=== PATIENT | female | born 1945 | race Caucasian/White ===

== ENCOUNTER 2018-05-09 18:05 | Inpatient (IN) | payer MEDICARE, OTHER ==
[2018-05-09 18:55] LABS: ADD MAN DIFF? NO
[2018-05-09] MEDS: hydrALAzine 20 MG INJ IV (18:58)
[2018-05-09 18:59] LABS: BASOPHIL # 0.1 10^3/ul (0.0-0.1); BASOPHILS % 1.1 % (0.0-2.0); EOSINOPHILS # 0.1 10^3/ul (0.0-0.5); EOSINOPHILS % 1.9 % (0.0-7.0); HEMATOCRIT 34.8 % (37.0-47.0); HEMOGLOBIN 11.1 g/dl (12.0-16.0); LYMPHOCYTES # 1.4 10^3/ul (0.8-2.9); LYMPHOCYTES % 21.1 % (15.0-51.0); MEAN CORPUSCULAR HEMOGLOBIN 28.7 pg (29.0-33.0); MEAN CORPUSCULAR HGB CONC 31.9 g/dl (32.0-37.0); MEAN CORPUSCULAR VOLUME 89.9 fl (82.0-101.0); MEAN PLATELET VOLUME 10.9 fl (7.4-10.4); MONOCYTE # 0.5 10^3/ul (0.3-0.9); MONOCYTES % 8.3 % (0.0-11.0); NEUTROPHIL # 4.3 10^3/ul (1.6-7.5); PLATELET COUNT 174 10^3/UL (140-415); RED BLOOD COUNT 3.87 10^6/ul (4.20-5.40); RED CELL DISTRIBUTION WIDTH 13.3 % (11.5-14.5)
[2018-05-09 18:59] LABS: WHITE BLOOD COUNT 6.5 10^3/ul (4.8-10.8)
[2018-05-09 19:16] LABS: INR 0.88; PARTIAL THROMBOPLASTIN TIME 21.8 Sec (23.0-35.0); PT RATIO 0.9
[2018-05-09 19:17] LABS: ALANINE AMINOTRANSFERASE 16 IU/L (13-69); ALBUMIN 4.5 g/dl (3.3-4.9); ALBUMIN/GLOBULIN RATIO 1.45; ALKALINE PHOSPHATASE 47 IU/L (42-121); ANION GAP 12 (5-13); ASPARTATE AMINO TRANSFERASE 36 IU/L (15-46); BILIRUBIN,INDIRECT 0.2 mg/dl (0-1.1); BILIRUBIN,TOTAL 0.2 mg/dl (0.2-1.3); BLOOD UREA NITROGEN 52 mg/dl (7-20); CARBON DIOXIDE 36 mmol/L (21-31); CHLORIDE 91 mmol/L (97-110); GLUCOSE 99 mg/dl (70-220); LIPASE 326 U/L (23-300); POTASSIUM 3.3 mmol/L (3.5-5.1); SODIUM 139 mmol/L (135-144); TOTAL PROTEIN 7.6 g/dl (6.1-8.1)
[2018-05-09 19:28] LABS: TROPONIN-I 0.017 ng/ml (0.000-0.120)
[2018-05-09 19:34] LABS: CALCIUM 17.9 mg/dl (8.4-10.2)
[2018-05-09 19:36] LABS: ADD UMIC YES; UR ASCORBIC ACID NEGATIVE (NEGATIVE); UR BACTERIA FEW /HPF (NONE SEEN); UR BILIRUBIN (Dip) NEGATIVE (NEGATIVE); UR BLOOD (Dip) NEGATIVE (NEGATIVE); UR CLARITY CLEAR (CLEAR); UR COLOR STRAW (YELLOW); UR GLUCOSE (Dip) NEGATIVE (NEGATIVE); UR KETONES (Dip) NEGATIVE (NEGATIVE); UR LEUKOCYTE ESTERASE (Dip) NEGATIVE Leu/ul (NEGATIVE); UR NITRITE (Dip) NEGATIVE (NEGATIVE); UR RBC 1 /HPF (0-5); UR SPECIFIC GRAVITY (Dip) 1.008 (1.003-1.030); UR SQUAMOUS EPITHELIAL CELL FEW /HPF (FEW); UR TOTAL PROTEIN (Dip) 2+ mg/dl (NEGATIVE); UR UROBILINOGEN (Dip) NEGATIVE (NEGATIVE); UR WBC 1 /HPF (0-5)
[2018-05-09] MEDS: SOD CHLORIDE 0.9% 1,000 ML IV (20:08)
[2018-05-09] MEDS: FUROSEMIDE 20 MG INJ IV (20:08)
[2018-05-09] MEDS: ENALAPRILAT 1.25 MG INJ IV (21:05)
[2018-05-09 22:33] LABS: CREATININE,URINE RANDOM 55.66 mg/dl (20-320)
[2018-05-09 22:33] LABS: SODIUM,URINE RANDOM 76 mmol/L (30-90)
[2018-05-10] MEDS ORDERED: DICLOFENAC SODIUM 1% GEL 100 GM TUBE TP (01:00)
[2018-05-10] MEDS: SOD CHLORIDE 0.9% 1,000 ML IV ×2 (01:12→09:50)
[2018-05-10] MEDS: POTASSIUM CHLORIDE (SR) 20 MEQ TAB PO ×2 (05:37→10:54)
[2018-05-10 05:54] LABS: ADD MAN DIFF? NO
[2018-05-10 06:01] LABS: BASOPHIL # 0.1 10^3/ul (0.0-0.1); BASOPHILS % 0.9 % (0.0-2.0); EOSINOPHILS # 0.1 10^3/ul (0.0-0.5); EOSINOPHILS % 1.7 % (0.0-7.0); HEMATOCRIT 29.4 % (37.0-47.0); HEMOGLOBIN 9.2 g/dl (12.0-16.0); LYMPHOCYTES # 1.9 10^3/ul (0.8-2.9); LYMPHOCYTES % 28.6 % (15.0-51.0); MEAN CORPUSCULAR HEMOGLOBIN 28.2 pg (29.0-33.0); MEAN CORPUSCULAR HGB CONC 31.3 g/dl (32.0-37.0); MEAN CORPUSCULAR VOLUME 90.2 fl (82.0-101.0); MEAN PLATELET VOLUME 11.4 fl (7.4-10.4); MONOCYTE # 0.7 10^3/ul (0.3-0.9); MONOCYTES % 10.3 % (0.0-11.0); NEUTROPHIL # 3.8 10^3/ul (1.6-7.5); PLATELET COUNT 140 10^3/UL (140-415); RED BLOOD COUNT 3.26 10^6/ul (4.20-5.40); RED CELL DISTRIBUTION WIDTH 13.3 % (11.5-14.5)
[2018-05-10 06:01] LABS: WHITE BLOOD COUNT 6.6 10^3/ul (4.8-10.8)
[2018-05-10 06:39] LABS: ANION GAP 9 (5-13); BLOOD UREA NITROGEN 50 mg/dl (7-20); CARBON DIOXIDE 32 mmol/L (21-31); CHLORIDE 96 mmol/L (97-110); CREATININE 5.61 mg/dl (0.44-1.00); GLUCOSE 104 mg/dl (70-220); MAGNESIUM 1.7 mg/dl (1.7-2.5); PHOSPHORUS 4.5 mg/dl (2.5-4.9); POTASSIUM 3.1 mmol/L (3.5-5.1); SODIUM 137 mmol/L (135-144)
[2018-05-10 06:49] LABS: CALCIUM 15.9 mg/dl (8.4-10.2)
[2018-05-10] MEDS: ACCU-CHEK XX ×4 (07:00→20:25)
[2018-05-10] MEDS ORDERED: CALCITONIN SALMON 400 UNITS INJ SC (09:00)
[2018-05-10] MEDS: LINAGLIPTIN 5 MG TABLET PO (10:53)
[2018-05-10] MEDS: FUROSEMIDE 40 MG INJ IV (10:53)
[2018-05-10] MEDS: CALCITONIN SALMON 400 UNITS INJ SC ×2 (10:54→22:20)
[2018-05-10 13:44] LABS: CALCIUM 15.6 mg/dl (8.4-10.2)
[2018-05-10 17:03] LABS: ANION GAP 11 (5-13); BLOOD UREA NITROGEN 47 mg/dl (7-20); CARBON DIOXIDE 31 mmol/L (21-31); CHLORIDE 96 mmol/L (97-110); CREATININE 5.48 mg/dl (0.44-1.00); GLUCOSE 138 mg/dl (70-220); POTASSIUM 3.5 mmol/L (3.5-5.1); SODIUM 138 mmol/L (135-144)
[2018-05-10 17:13] LABS: CALCIUM 15.1 mg/dl (8.4-10.2)
[2018-05-11] MEDS: SOD CHLORIDE 0.9% 1,000 ML IV ×3 (01:20→22:11)
[2018-05-11 06:15] LABS: ADD MAN DIFF? NO
[2018-05-11 06:17] LABS: WHITE BLOOD COUNT 7.4 10^3/ul (4.8-10.8)
[2018-05-11 06:17] LABS: BASOPHIL # 0.1 10^3/ul (0.0-0.1); BASOPHILS % 0.7 % (0.0-2.0); EOSINOPHILS # 0.1 10^3/ul (0.0-0.5); EOSINOPHILS % 1.2 % (0.0-7.0); HEMATOCRIT 29.6 % (37.0-47.0); HEMOGLOBIN 9.4 g/dl (12.0-16.0); LYMPHOCYTES # 1.7 10^3/ul (0.8-2.9); LYMPHOCYTES % 23.3 % (15.0-51.0); MEAN CORPUSCULAR HEMOGLOBIN 28.6 pg (29.0-33.0); MEAN CORPUSCULAR HGB CONC 31.8 g/dl (32.0-37.0); MEAN PLATELET VOLUME 11.5 fl (7.4-10.4); MONOCYTE # 0.7 10^3/ul (0.3-0.9); NEUTROPHIL # 4.8 10^3/ul (1.6-7.5); NEUTROPHILS % 64.1 % (39.0-77.0); PLATELET COUNT 150 10^3/UL (140-415); RED BLOOD COUNT 3.29 10^6/ul (4.20-5.40); RED CELL DISTRIBUTION WIDTH 13.4 % (11.5-14.5)
[2018-05-11] MEDS: hydrALAzine 20 MG INJ IV (06:38)
[2018-05-11] MEDS: ACCU-CHEK XX ×4 (07:00→21:00)
[2018-05-11 07:20] LABS: ANION GAP 11 (5-13); BLOOD UREA NITROGEN 48 mg/dl (7-20); CARBON DIOXIDE 29 mmol/L (21-31); CHLORIDE 99 mmol/L (97-110); CREATININE 5.22 mg/dl (0.44-1.00); GLUCOSE 121 mg/dl (70-220); MAGNESIUM 1.5 mg/dl (1.7-2.5); PHOSPHORUS 3.3 mg/dl (2.5-4.9); POTASSIUM 3.5 mmol/L (3.5-5.1); SODIUM 139 mmol/L (135-144)
[2018-05-11 07:53] LABS: CALCIUM 14.5 mg/dl (8.4-10.2)
[2018-05-11] MEDS: CALCITONIN SALMON 400 UNITS INJ SC (08:03)
[2018-05-11] MEDS: LINAGLIPTIN 5 MG TABLET PO (08:05)
[2018-05-11] MEDS: ONDANSETRON 4 MG INJ IV (11:45)
[2018-05-11] MEDS: MAGNESIUM SULFATE 2 GM/50 ML 50 ML IVPB (12:35)
[2018-05-11 13:03] LABS: CALCIUM 13.6 mg/dl (8.4-10.2)
[2018-05-11] MEDS: FUROSEMIDE 40 MG INJ IV (14:40)
[2018-05-11] MEDS: ALBUTEROL/IPRATROPIUM (NEB) 3 ML AMP HHN ×2 (16:12→22:35)
[2018-05-12] MEDS: ALBUTEROL/IPRATROPIUM (NEB) 3 ML AMP HHN ×4 (02:24→19:31)
[2018-05-12] MEDS: ACCU-CHEK XX ×5 (02:35→21:00)
[2018-05-12 05:37] LABS: ADD MAN DIFF? NO
[2018-05-12 05:42] LABS: BASOPHIL # 0.1 10^3/ul (0.0-0.1); BASOPHILS % 0.9 % (0.0-2.0); EOSINOPHILS # 0.1 10^3/ul (0.0-0.5); HEMOGLOBIN 9.1 g/dl (12.0-16.0); LYMPHOCYTES # 1.8 10^3/ul (0.8-2.9); LYMPHOCYTES % 22.3 % (15.0-51.0); MEAN CORPUSCULAR HEMOGLOBIN 28.6 pg (29.0-33.0); MEAN CORPUSCULAR HGB CONC 31.4 g/dl (32.0-37.0); MEAN CORPUSCULAR VOLUME 91.2 fl (82.0-101.0); MEAN PLATELET VOLUME 11.3 fl (7.4-10.4); NEUTROPHIL # 5.1 10^3/ul (1.6-7.5); NEUTROPHILS % 63.2 % (39.0-77.0); NUCLEATED RED BLOOD CELLS% 0.4 /100WBC (0.0-0.0); PLATELET COUNT 159 10^3/UL (140-415); RED BLOOD COUNT 3.18 10^6/ul (4.20-5.40); RED CELL DISTRIBUTION WIDTH 13.6 % (11.5-14.5)
[2018-05-12] MEDS ORDERED: PANTOPRAZOLE (EC) 40 MG TAB PO (05:47)
[2018-05-12] MEDS: PANTOPRAZOLE (EC) 40 MG TAB PO (05:49)
[2018-05-12 07:21] LABS: ANION GAP 10 (5-13); BLOOD UREA NITROGEN 48 mg/dl (7-20); CARBON DIOXIDE 32 mmol/L (21-31); CHLORIDE 96 mmol/L (97-110); CREATININE 5.36 mg/dl (0.44-1.00); GLUCOSE 128 mg/dl (70-220); MAGNESIUM 2.2 mg/dl (1.7-2.5); POTASSIUM 3.3 mmol/L (3.5-5.1); SODIUM 138 mmol/L (135-144)
[2018-05-12 07:37] LABS: CALCIUM 13.3 mg/dl (8.4-10.2)
[2018-05-12] MEDS: POTASSIUM CHLORIDE (SR) 20 MEQ TAB PO (08:57)
[2018-05-12] MEDS: LINAGLIPTIN 5 MG TABLET PO ×2 (08:58→12:44)
[2018-05-12] MEDS: SOD CHLORIDE 0.9% 1,000 ML IV (10:09)
[2018-05-12] MEDS ORDERED: LIDOCAINE 1% (MDV) 20 ML INJ (10:55)
[2018-05-12] MEDS ORDERED: MIDAZOLAM 1 MG/ML 2 ML INJ (10:55)
[2018-05-12] MEDS ORDERED: HEPARIN 1000 UNITS/ML 10 ML INJ ×2 (10:55→11:20)
[2018-05-12] MEDS ORDERED: IODIXANOL LOCM 100 ML BTL (10:55)
[2018-05-12] MEDS ORDERED: FENTAnyl 50 MCG/ML VIAL (10:56)
[2018-05-12] MEDS ORDERED: HEPARIN 1000 UNITS/NS (A-LINE) 1,000 ML (11:20)
[2018-05-12 12:30] LABS: HEPATITIS B SURFACE ANTIGEN NEGATIVE (NEGATIVE)
[2018-05-12] MEDS ORDERED: HYDROCODONE/APAP (5/325) TAB PO (14:00)
[2018-05-12] MEDS: morphine 2 MG INJ IV (14:20)
[2018-05-12] MEDS: ACETAMINOPHEN 500 MG TAB PO (14:20)
[2018-05-12 17:11] LABS: CREATININE, RANDOM URINE 59 mg/dL (20-275); MICROALBUMIN 48.2 mg/dL; MICROALBUMIN/CREATININE RATIO 817 (<30)
[2018-05-12] MEDS: [UNRECOGNIZED DRUG - REMARK] XX (17:30)
[2018-05-12] MEDS: HEPARIN 1000 UNITS/ML 10 ML INJ CATHETER (21:28)
[2018-05-12] MEDS: ACETAMINOPHEN/CODEINE #3 TAB PO (22:32)
[2018-05-12] MEDS: SENNA TAB PO (22:32)
[2018-05-13] MEDS: ALBUTEROL/IPRATROPIUM (NEB) 3 ML AMP HHN ×4 (01:27→19:47)
[2018-05-13 05:23] LABS: ADD MAN DIFF? NO
[2018-05-13 05:25] LABS: BASOPHIL # 0.1 10^3/ul (0.0-0.1); BASOPHILS % 0.8 % (0.0-2.0); EOSINOPHILS # 0.1 10^3/ul (0.0-0.5); HEMOGLOBIN 8.8 g/dl (12.0-16.0); LYMPHOCYTES # 1.9 10^3/ul (0.8-2.9); LYMPHOCYTES % 31.5 % (15.0-51.0); MEAN CORPUSCULAR HGB CONC 31.4 g/dl (32.0-37.0); MEAN CORPUSCULAR VOLUME 92.4 fl (82.0-101.0); MEAN PLATELET VOLUME 11.3 fl (7.4-10.4); MONOCYTE # 0.8 10^3/ul (0.3-0.9); MONOCYTES % 12.3 % (0.0-11.0); NEUTROPHIL # 3.2 10^3/ul (1.6-7.5); NEUTROPHILS % 52.9 % (39.0-77.0); NUCLEATED RED BLOOD CELLS% 0.3 /100WBC (0.0-0.0); PLATELET COUNT 131 10^3/UL (140-415); RED BLOOD COUNT 3.03 10^6/ul (4.20-5.40); RED CELL DISTRIBUTION WIDTH 13.8 % (11.5-14.5)
[2018-05-13 05:25] LABS: WHITE BLOOD COUNT 6.1 10^3/ul (4.8-10.8)
[2018-05-13] MEDS: ACETAMINOPHEN/CODEINE #3 TAB PO (05:28)
[2018-05-13 06:00] LABS: ANION GAP 9 (5-13); BLOOD UREA NITROGEN 27 mg/dl (7-20); CALCIUM 10.4 mg/dl (8.4-10.2); CARBON DIOXIDE 29 mmol/L (21-31); CHLORIDE 101 mmol/L (97-110); CREATININE 3.73 mg/dl (0.44-1.00); GLUCOSE 111 mg/dl (70-220); MAGNESIUM 1.9 mg/dl (1.7-2.5); PHOSPHORUS 2.1 mg/dl (2.5-4.9); POTASSIUM 3.4 mmol/L (3.5-5.1); SODIUM 139 mmol/L (135-144)
[2018-05-13] MEDS: SOD CHLORIDE 0.9% 1,000 ML IV (06:09)
[2018-05-13] MEDS: PANTOPRAZOLE (EC) 40 MG TAB PO (06:30)
[2018-05-13] MEDS: ACCU-CHEK XX ×4 (07:00→21:00)
[2018-05-13] MEDS: LINAGLIPTIN 5 MG TABLET PO (08:57)
[2018-05-13] MEDS: NEUTRA-PHOS 250 MG PACKET PO (08:57)
[2018-05-13] MEDS: POTASSIUM CHLORIDE (SR) 20 MEQ TAB PO (08:57)
[2018-05-13] MEDS: KETOROLAC 15 MG INJ IV (08:59)
[2018-05-13] MEDS: ACETAMINOPHEN 500 MG TAB PO (13:56)
[2018-05-13] MEDS: SENNA TAB PO (21:53)
[2018-05-13] MEDS: EPOETIN 10000 UNITS/1 ML INJ (ESRD) SC (21:56)
[2018-05-14 00:07] LABS: PROTEIN, TOTAL 5.5 g/dL (6.1-8.1)
[2018-05-14] MEDS: ACETAMINOPHEN/CODEINE #3 TAB PO (00:19)
[2018-05-14] MEDS: ALBUTEROL/IPRATROPIUM (NEB) 3 ML AMP HHN ×4 (01:15→20:43)
[2018-05-14] MEDS: PANTOPRAZOLE (EC) 40 MG TAB PO (06:18)
[2018-05-14] MEDS: ACETAMINOPHEN 500 MG TAB PO ×2 (06:28→23:20)
[2018-05-14] MEDS: ACCU-CHEK XX ×4 (08:00→22:33)
[2018-05-14] MEDS: LINAGLIPTIN 5 MG TABLET PO (09:20)
[2018-05-14] MEDS ORDERED: KETOROLAC 15 MG INJ IV (10:00)
[2018-05-14] MEDS: SENNA TAB PO ×2 (11:57→21:00)
[2018-05-14 15:46] LABS: CREATININE, RANDOM URINE 25 mg/dL (20-275); PROTEIN/CREATININE RATIO 2160 mg/g creat (21-161)
[2018-05-14] MEDS: HEPARIN 1000 UNITS/ML 10 ML INJ CATHETER (21:49)
[2018-05-14] MEDS: HEPARIN 5,000 UNIT/1 ML VIAL SC (22:50)
[2018-05-14 23:32] LABS: ALBUMIN 3.5 g/dL (3.8-4.8); ALPHA-1-GLOBULINS 0.3 g/dL (0.2-0.3); ALPHA-2-GLOBULINS 0.7 g/dL (0.5-0.9); BETA 2 GLOBULINS 0.2 g/dL (0.2-0.5); BETA GLOBULINS 0.3 g/dL (0.4-0.6); GAMMA GLOBULINS 0.6 g/dL (0.8-1.7)
[2018-05-15] MEDS: ALBUTEROL/IPRATROPIUM (NEB) 3 ML AMP HHN ×4 (01:12→20:29)
[2018-05-15] MEDS: PANTOPRAZOLE (EC) 40 MG TAB PO (05:47)
[2018-05-15] MEDS: ACCU-CHEK XX ×4 (05:47→21:00)
[2018-05-15 06:29] LABS: ANION GAP 7 (5-13); BLOOD UREA NITROGEN 9 mg/dl (7-20); CALCIUM 9.3 mg/dl (8.4-10.2); CARBON DIOXIDE 29 mmol/L (21-31); CHLORIDE 101 mmol/L (97-110); CREATININE 2.41 mg/dl (0.44-1.00); GLUCOSE 130 mg/dl (70-220); MAGNESIUM 1.8 mg/dl (1.7-2.5); PHOSPHORUS 1.7 mg/dl (2.5-4.9); POTASSIUM 3.7 mmol/L (3.5-5.1); SODIUM 137 mmol/L (135-144)
[2018-05-15] MEDS: LINAGLIPTIN 5 MG TABLET PO (08:52)
[2018-05-15] MEDS: SENNA TAB PO ×2 (08:52→21:00)
[2018-05-15] MEDS: HEPARIN 5,000 UNIT/1 ML VIAL SC ×2 (09:08→21:00)
[2018-05-15] MEDS: NEUTRA-PHOS 250 MG PACKET PO ×2 (12:16→21:33)
[2018-05-15] MEDS: EPOETIN 10000 UNITS/1 ML INJ (ESRD) SC (18:12)
[2018-05-15 21:27] LABS: PTH CALCIUM 12.7 mg/dL (8.6-10.4)
[2018-05-15 22:12] LABS: PTH INTACT 18 pg/mL (14-64)
[2018-05-16] MEDS: ALBUTEROL/IPRATROPIUM (NEB) 3 ML AMP HHN ×4 (01:45→19:44)
[2018-05-16] MEDS: PANTOPRAZOLE (EC) 40 MG TAB PO (06:12)
[2018-05-16] MEDS: ACCU-CHEK XX ×4 (06:15→21:00)
[2018-05-16] MEDS: SENNA TAB PO ×2 (08:50→21:04)
[2018-05-16] MEDS: LINAGLIPTIN 5 MG TABLET PO (08:50)
[2018-05-16] MEDS: NEUTRA-PHOS 250 MG PACKET PO ×2 (08:52→21:04)
[2018-05-16] MEDS: HEPARIN 5,000 UNIT/1 ML VIAL SC ×2 (08:53→21:00)
[2018-05-16] MEDS: HEPARIN 1000 UNITS/ML 10 ML INJ CATHETER (13:56)
[2018-05-16] MEDS: ACETAMINOPHEN 500 MG TAB PO (23:38)
[2018-05-17] MEDS: hydrALAzine 20 MG INJ IV (01:25)
[2018-05-17] MEDS: ALBUTEROL/IPRATROPIUM (NEB) 3 ML AMP HHN ×4 (01:39→20:11)
[2018-05-17 05:55] LABS: ADD MAN DIFF? NO
[2018-05-17 06:04] LABS: BASOPHIL # 0.1 10^3/ul (0.0-0.1); BASOPHILS % 0.9 % (0.0-2.0); EOSINOPHILS # 0.2 10^3/ul (0.0-0.5); EOSINOPHILS % 3.3 % (0.0-7.0); HEMATOCRIT 29.6 % (37.0-47.0); HEMOGLOBIN 9.1 g/dl (12.0-16.0); LYMPHOCYTES # 2.1 10^3/ul (0.8-2.9); LYMPHOCYTES % 30.5 % (15.0-51.0); MEAN CORPUSCULAR HEMOGLOBIN 28.6 pg (29.0-33.0); MEAN CORPUSCULAR HGB CONC 30.7 g/dl (32.0-37.0); MEAN CORPUSCULAR VOLUME 93.1 fl (82.0-101.0); MEAN PLATELET VOLUME 10.7 fl (7.4-10.4); MONOCYTE # 0.9 10^3/ul (0.3-0.9); MONOCYTES % 12.5 % (0.0-11.0); NEUTROPHIL # 3.6 10^3/ul (1.6-7.5); NEUTROPHILS % 52.2 % (39.0-77.0); PLATELET COUNT 141 10^3/UL (140-415); RED BLOOD COUNT 3.18 10^6/ul (4.20-5.40)
[2018-05-17 06:04] LABS: WHITE BLOOD COUNT 6.9 10^3/ul (4.8-10.8)
[2018-05-17 06:54] LABS: ANION GAP 10 (5-13); BLOOD UREA NITROGEN 8 mg/dl (7-20); CALCIUM 7.8 mg/dl (8.4-10.2); CARBON DIOXIDE 26 mmol/L (21-31); CHLORIDE 97 mmol/L (97-110); CREATININE 3.15 mg/dl (0.44-1.00); GLUCOSE 119 mg/dl (70-220); MAGNESIUM 1.5 mg/dl (1.7-2.5); PHOSPHORUS 4.5 mg/dl (2.5-4.9); POTASSIUM 3.3 mmol/L (3.5-5.1); SODIUM 133 mmol/L (135-144)
[2018-05-17] MEDS: ACCU-CHEK XX ×4 (07:35→20:09)
[2018-05-17] MEDS: PANTOPRAZOLE (EC) 40 MG TAB PO (07:36)
[2018-05-17] MEDS: HEPARIN 5,000 UNIT/1 ML VIAL SC ×2 (09:00→20:08)
[2018-05-17] MEDS: SENNA TAB PO ×2 (09:05→20:08)
[2018-05-17] MEDS: LINAGLIPTIN 5 MG TABLET PO (09:05)
[2018-05-17] MEDS: NEUTRA-PHOS 250 MG PACKET PO ×2 (09:06→20:08)
[2018-05-17] MEDS: POTASSIUM CHLORIDE (SR) 8 MEQ CAP PO (10:31)
[2018-05-17] MEDS: ACETAMINOPHEN 500 MG TAB PO (11:24)
[2018-05-17] MEDS: MAGNESIUM SULFATE 1 GM/D5W 100 ML IVPB (11:41)
[2018-05-17] MEDS: EPOETIN 10000 UNITS/1 ML INJ (ESRD) SC (16:45)
[2018-05-18] MEDS: ALBUTEROL/IPRATROPIUM (NEB) 3 ML AMP HHN ×4 (01:09→20:57)
[2018-05-18] MEDS: PANTOPRAZOLE (EC) 40 MG TAB PO (06:18)
[2018-05-18] MEDS: ACCU-CHEK XX ×4 (07:23→21:15)
[2018-05-18] MEDS: SENNA TAB PO ×2 (08:58→21:13)
[2018-05-18] MEDS: NEUTRA-PHOS 250 MG PACKET PO ×2 (08:58→21:13)
[2018-05-18] MEDS: HEPARIN 5,000 UNIT/1 ML VIAL SC ×2 (09:00→21:00)
[2018-05-18] MEDS: LINAGLIPTIN 5 MG TABLET PO (09:00)
[2018-05-19] MEDS: GABAPENTIN 100 MG CAP PO ×2 (01:18→20:16)
[2018-05-19] MEDS: ALBUTEROL/IPRATROPIUM (NEB) 3 ML AMP HHN ×4 (02:00→20:46)
[2018-05-19 02:18] LABS: ADD MAN DIFF? NO
[2018-05-19 02:19] LABS: WHITE BLOOD COUNT 7.1 10^3/ul (4.8-10.8)
[2018-05-19 02:19] LABS: BASOPHIL # 0.1 10^3/ul (0.0-0.1); BASOPHILS % 0.7 % (0.0-2.0); EOSINOPHILS # 0.3 10^3/ul (0.0-0.5); EOSINOPHILS % 3.5 % (0.0-7.0); HEMATOCRIT 29.7 % (37.0-47.0); HEMOGLOBIN 9.1 g/dl (12.0-16.0); LYMPHOCYTES % 28.1 % (15.0-51.0); MEAN CORPUSCULAR HEMOGLOBIN 28.5 pg (29.0-33.0); MEAN CORPUSCULAR HGB CONC 30.6 g/dl (32.0-37.0); MEAN CORPUSCULAR VOLUME 93.1 fl (82.0-101.0); MEAN PLATELET VOLUME 10.2 fl (7.4-10.4); MONOCYTES % 14.1 % (0.0-11.0); NEUTROPHIL # 3.8 10^3/ul (1.6-7.5); NEUTROPHILS % 52.9 % (39.0-77.0); PLATELET COUNT 154 10^3/UL (140-415); RED BLOOD COUNT 3.19 10^6/ul (4.20-5.40); RED CELL DISTRIBUTION WIDTH 15.5 % (11.5-14.5)
[2018-05-19 02:36] LABS: ALANINE AMINOTRANSFERASE 15 IU/L (13-69); ALBUMIN 3.8 g/dl (3.3-4.9); ALBUMIN/GLOBULIN RATIO 1.58; ALKALINE PHOSPHATASE 56 IU/L (42-121); ANION GAP 15 (5-13); ASPARTATE AMINO TRANSFERASE 17 IU/L (15-46); BILIRUBIN,TOTAL 0.1 mg/dl (0.2-1.3); BLOOD UREA NITROGEN 23 mg/dl (7-20); CALCIUM 6.8 mg/dl (8.4-10.2); CARBON DIOXIDE 20 mmol/L (21-31); CHLORIDE 103 mmol/L (97-110); CREATININE 5.73 mg/dl (0.44-1.00); GLUCOSE 107 mg/dl (70-220); MAGNESIUM 1.8 mg/dl (1.7-2.5); PHOSPHORUS 7.8 mg/dl (2.5-4.9); POTASSIUM 3.5 mmol/L (3.5-5.1); SODIUM 138 mmol/L (135-144); TOTAL PROTEIN 6.2 g/dl (6.1-8.1)
[2018-05-19] MEDS: hydrALAzine 20 MG INJ IV (03:30)
[2018-05-19] MEDS ORDERED: HYDROCODONE/APAP (5/325) TAB PO (03:30)
[2018-05-19] MEDS: PANTOPRAZOLE (EC) 40 MG TAB PO (06:36)
[2018-05-19] MEDS: ACCU-CHEK XX ×4 (07:00→20:18)
[2018-05-19] MEDS: HEPARIN 5,000 UNIT/1 ML VIAL SC ×2 (08:03→20:12)
[2018-05-19] MEDS: NEUTRA-PHOS 250 MG PACKET PO (08:03)
[2018-05-19] MEDS: LINAGLIPTIN 5 MG TABLET PO (08:03)
[2018-05-19] MEDS: SENNA TAB PO ×2 (08:03→20:13)
[2018-05-19] MEDS: MULTIVIT/CA CARB/B CMPLX/FA TAB PO ×2 (09:00→14:08)
[2018-05-19] MEDS: CHOLECALCIFEROL 1,000 UNIT TAB PO ×2 (09:00→14:08)
[2018-05-19] MEDS: HEPARIN 1000 UNITS/ML 10 ML INJ CATHETER (13:33)
[2018-05-19] MEDS: ACETAMINOPHEN 500 MG TAB PO (15:32)
[2018-05-19] MEDS: CALCITRIOL 1 MCG INJ IV (16:00)
[2018-05-19 16:57] LABS: CREATINE KINASE 55 IU/L (23-200)
[2018-05-19 17:10] LABS: CK INDEX 0.4; CK-MB < 0.22 ng/ml (0.0-2.4); TROPONIN-I < 0.012 ng/ml (0.000-0.120)
[2018-05-19] MEDS ORDERED: GABAPENTIN 100 MG CAP PO (21:00)
[2018-05-20] MEDS: ALBUTEROL/IPRATROPIUM (NEB) 3 ML AMP HHN ×4 (02:00→19:38)
[2018-05-20] MEDS: PANTOPRAZOLE (EC) 40 MG TAB PO (05:34)
[2018-05-20 05:45] LABS: ADD MAN DIFF? NO
[2018-05-20 05:48] LABS: WHITE BLOOD COUNT 5.5 10^3/ul (4.8-10.8)
[2018-05-20 05:48] LABS: BASOPHIL # 0.1 10^3/ul (0.0-0.1); BASOPHILS % 1.3 % (0.0-2.0); EOSINOPHILS # 0.2 10^3/ul (0.0-0.5); EOSINOPHILS % 3.1 % (0.0-7.0); HEMATOCRIT 31.2 % (37.0-47.0); HEMOGLOBIN 9.3 g/dl (12.0-16.0); LYMPHOCYTES # 1.7 10^3/ul (0.8-2.9); LYMPHOCYTES % 30.8 % (15.0-51.0); MEAN CORPUSCULAR HEMOGLOBIN 28.6 pg (29.0-33.0); MEAN CORPUSCULAR HGB CONC 29.8 g/dl (32.0-37.0); MEAN PLATELET VOLUME 10.1 fl (7.4-10.4); MONOCYTES % 18.3 % (0.0-11.0); NEUTROPHIL # 2.5 10^3/ul (1.6-7.5); NEUTROPHILS % 46.1 % (39.0-77.0); PLATELET COUNT 141 10^3/UL (140-415); RED BLOOD COUNT 3.25 10^6/ul (4.20-5.40); RED CELL DISTRIBUTION WIDTH 15.5 % (11.5-14.5)
[2018-05-20 06:07] LABS: CREATINE KINASE 44 IU/L (23-200)
[2018-05-20 06:19] LABS: CK INDEX 0.6; CK-MB 0.26 ng/ml (0.0-2.4); TROPONIN-I 0.043 ng/ml (0.000-0.120)
[2018-05-20 06:20] LABS: ALANINE AMINOTRANSFERASE 14 IU/L (13-69); ALBUMIN 3.7 g/dl (3.3-4.9); ALBUMIN/GLOBULIN RATIO 1.54; ALKALINE PHOSPHATASE 48 IU/L (42-121); ANION GAP 15 (5-13); ASPARTATE AMINO TRANSFERASE 16 IU/L (15-46); BILIRUBIN,INDIRECT 0.2 mg/dl (0-1.1); BILIRUBIN,TOTAL 0.2 mg/dl (0.2-1.3); BLOOD UREA NITROGEN 12 mg/dl (7-20); CARBON DIOXIDE 28 mmol/L (21-31); CHLORIDE 96 mmol/L (97-110); CHOL/HDL RATIO 4.3 RATIO; CHOLESTEROL 172 mg/dl (100-200); CREATININE 3.54 mg/dl (0.44-1.00); GLUCOSE 111 mg/dl (70-220); HDL CHOLESTEROL 40 mg/dl (33-92); LDL CHOLESTEROL,CALCULATED 89 mg/dl; POTASSIUM 3.8 mmol/L (3.5-5.1); SODIUM 139 mmol/L (135-144); TOTAL PROTEIN 6.1 g/dl (6.1-8.1); TRIGLYCERIDES 214 mg/dl (0-149)
[2018-05-20 06:48] LABS: MAGNESIUM 1.8 mg/dl (1.7-2.5)
[2018-05-20] MEDS: ACCU-CHEK XX ×4 (07:00→21:00)
[2018-05-20] MEDS: MULTIVIT/CA CARB/B CMPLX/FA TAB PO (08:17)
[2018-05-20] MEDS: LINAGLIPTIN 5 MG TABLET PO (08:17)
[2018-05-20] MEDS: HEPARIN 5,000 UNIT/1 ML VIAL SC ×2 (08:18→21:00)
[2018-05-20] MEDS: CHOLECALCIFEROL 1,000 UNIT TAB PO (08:18)
[2018-05-20] MEDS: SENNA TAB PO ×2 (08:29→21:05)
[2018-05-20] MEDS: CALCITRIOL 1 MCG INJ IV (10:29)
[2018-05-20] MEDS: EPOETIN 10000 UNITS/1 ML INJ (ESRD) SC (17:01)
[2018-05-20] MEDS: GABAPENTIN 100 MG CAP PO (21:05)
[2018-05-21] MEDS: ALBUTEROL/IPRATROPIUM (NEB) 3 ML AMP HHN ×3 (01:46→16:13)
[2018-05-21] MEDS: PANTOPRAZOLE (EC) 40 MG TAB PO (06:00)
[2018-05-21 06:40] LABS: ADD MAN DIFF? NO
[2018-05-21 07:02] LABS: BASOPHIL # 0.1 10^3/ul (0.0-0.1); BASOPHILS % 1.1 % (0.0-2.0); EOSINOPHILS # 0.2 10^3/ul (0.0-0.5); EOSINOPHILS % 3.3 % (0.0-7.0); HEMATOCRIT 28.9 % (37.0-47.0); HEMOGLOBIN 8.7 g/dl (12.0-16.0); LYMPHOCYTES # 1.6 10^3/ul (0.8-2.9); LYMPHOCYTES % 29.6 % (15.0-51.0); MEAN CORPUSCULAR HEMOGLOBIN 28.8 pg (29.0-33.0); MEAN CORPUSCULAR HGB CONC 30.1 g/dl (32.0-37.0); MEAN CORPUSCULAR VOLUME 95.7 fl (82.0-101.0); MEAN PLATELET VOLUME 10.1 fl (7.4-10.4); MONOCYTE # 1.2 10^3/ul (0.3-0.9); MONOCYTES % 21.2 % (0.0-11.0); NEUTROPHIL # 2.4 10^3/ul (1.6-7.5); NEUTROPHILS % 44.1 % (39.0-77.0); PLATELET COUNT 141 10^3/UL (140-415); RED BLOOD COUNT 3.02 10^6/ul (4.20-5.40); RED CELL DISTRIBUTION WIDTH 15.4 % (11.5-14.5)
[2018-05-21 07:02] LABS: WHITE BLOOD COUNT 5.5 10^3/ul (4.8-10.8)
[2018-05-21 07:22] LABS: ANION GAP 16 (5-13); BLOOD UREA NITROGEN 21 mg/dl (7-20); CALCIUM 7.7 mg/dl (8.4-10.2); CARBON DIOXIDE 25 mmol/L (21-31); CHLORIDE 94 mmol/L (97-110); CREATININE 4.68 mg/dl (0.44-1.00); GLUCOSE 98 mg/dl (70-220); MAGNESIUM 1.8 mg/dl (1.7-2.5); PHOSPHORUS 5.6 mg/dl (2.5-4.9); POTASSIUM 3.7 mmol/L (3.5-5.1); SODIUM 135 mmol/L (135-144)
[2018-05-21] MEDS: SENNA TAB PO (08:20)
[2018-05-21] MEDS: HEPARIN 5,000 UNIT/1 ML VIAL SC (08:20)
[2018-05-21] MEDS: ACCU-CHEK XX (08:20)
[2018-05-21] MEDS: MULTIVIT/CA CARB/B CMPLX/FA TAB PO (08:23)
[2018-05-21] MEDS: LINAGLIPTIN 5 MG TABLET PO (08:23)
[2018-05-21] MEDS: CHOLECALCIFEROL 1,000 UNIT TAB PO (08:23)
[2018-05-21] MEDS: HEPARIN 1000 UNITS/ML 10 ML INJ CATHETER (14:43)
[2018-05-21] MEDS: CALCITRIOL 1 MCG INJ IV (14:49)
[2018-05-21] MEDS ORDERED: GABAPENTIN 100 MG CAP PO (21:00)
[2018-05-21] MEDS ORDERED: ATORVASTATIN 10 MG TAB PO (21:00)
== END 2018-05-21 18:40 | disposition home health service (06) | DRG 673 ==
LOC: 6WM 05-11 20:48 → E/R 18:05 → 6WM 20:16
PROC: 0JH63XZ Insertion of Tunneled Vascular Access Device into Chest Subcutaneous Tissue and Fascia, Percutaneous Approach (ICD-10-PCS; principal; 2018-05-12 10:30)
PROC: 02H633Z Insertion of Infusion Device into Right Atrium, Percutaneous Approach (ICD-10-PCS; 2018-05-12 10:30)
PROC: 5A1D70Z Performance of Urinary Filtration, Intermittent, Less than 6 Hours Per Day (ICD-10-PCS; 2018-05-12 10:51)
DX: I12.0 Hypertensive chronic kidney disease with stage 5 chronic kidney disease or end stage renal disease (principal); N18.6 End stage renal disease; E87.3 Alkalosis; G93.40 Encephalopathy, unspecified; N17.9 Acute kidney failure, unspecified; I16.1 Hypertensive emergency; E83.52 Hypercalcemia; E87.6 Hypokalemia; E78.5 Hyperlipidemia, unspecified; E11.22 Type 2 diabetes mellitus with diabetic chronic kidney disease; Z86.73 Personal history of transient ischemic attack (TIA), and cerebral infarction without residual deficits; D63.1 Anemia in chronic kidney disease
CPT/HCPCS: 36415; 71045; 80048; 80053; 80061; 81001; 81003; 82043; 82306; 82310; 82550; 82553; 82570; 82652; 82962; 83690; 83735; 83970; 84100; 84155; 84156; 84165; 84166; 84300; 84484; 85025; 85610; 85730; 86320; 86325; 87086; 87340; 90935; 93005; 93306; 94640; 94664; 96374; 96375; 97110; 97116; 97162; 97530; 99291-25

== ENCOUNTER 2018-05-29 10:42 | Emergency (ER) | payer MEDICARE, OTHER ==
[2018-05-29 11:38] LABS: ADD MAN DIFF? NO
[2018-05-29 11:40] LABS: BASOPHIL # 0.1 10^3/ul (0.0-0.1); BASOPHILS % 0.6 % (0.0-2.0); EOSINOPHILS # 0.2 10^3/ul (0.0-0.5); EOSINOPHILS % 2.4 % (0.0-7.0); HEMATOCRIT 29.8 % (37.0-47.0); HEMOGLOBIN 9.3 g/dl (12.0-16.0); LYMPHOCYTES # 1.4 10^3/ul (0.8-2.9); LYMPHOCYTES % 16.1 % (15.0-51.0); MEAN CORPUSCULAR HEMOGLOBIN 28.7 pg (29.0-33.0); MEAN CORPUSCULAR HGB CONC 31.2 g/dl (32.0-37.0); MEAN PLATELET VOLUME 9.5 fl (7.4-10.4); MONOCYTES % 11.4 % (0.0-11.0); NEUTROPHIL # 6.1 10^3/ul (1.6-7.5); PLATELET COUNT 165 10^3/UL (140-415); RED BLOOD COUNT 3.24 10^6/ul (4.20-5.40); RED CELL DISTRIBUTION WIDTH 14.7 % (11.5-14.5)
[2018-05-29 11:40] LABS: WHITE BLOOD COUNT 8.8 10^3/ul (4.8-10.8)
[2018-05-29 11:57] LABS: ANION GAP 13 (5-13); BLOOD UREA NITROGEN 20 mg/dl (7-20); CALCIUM 7.9 mg/dl (8.4-10.2); CARBON DIOXIDE 28 mmol/L (21-31); CHLORIDE 94 mmol/L (97-110); CREATININE 3.11 mg/dl (0.44-1.00); GLUCOSE 105 mg/dl (70-220); POTASSIUM 3.3 mmol/L (3.5-5.1); SODIUM 135 mmol/L (135-144)
[2018-05-29 12:00] LABS: INR 0.95; PROTIME 12.8 Sec (11.9-14.9)
[2018-05-29 12:01] LABS: PARTIAL THROMBOPLASTIN TIME 39.6 Sec (23.0-35.0)
[2018-05-29] MEDS: HYDROCODONE/APAP (5/325) TAB PO (12:06)
[2018-05-29] MEDS: ONDANSETRON 4 MG INJ IV (14:09)
[2018-05-29] MEDS: KETOROLAC 15 MG INJ IV (14:10)
[2018-05-29] MEDS: SOD CHLORIDE 0.9% 250 ML IV (14:10)
[2018-05-29] MEDS: morphine 2 MG INJ IV (14:10)
== END 2018-05-29 16:29 | disposition home or self-care (01) ==
LOC: E/R 16:29
DX: N18.6 End stage renal disease (principal); I12.0 Hypertensive chronic kidney disease with stage 5 chronic kidney disease or end stage renal disease; Z99.2 Dependence on renal dialysis; Z86.73 Personal history of transient ischemic attack (TIA), and cerebral infarction without residual deficits
CPT/HCPCS: 36415; 70450; 71045; 80048; 85025; 85610; 85730; 93005; 96374; 96375; 99285-25

== ENCOUNTER 2018-06-09 07:25 | Emergency (ER) | payer MEDICARE, OTHER ==
[2018-06-09 08:20] LABS: WHITE BLOOD COUNT 6.9 10^3/ul (4.8-10.8)
[2018-06-09 08:20] LABS: ADD MAN DIFF? NO; BASOPHIL # 0.1 10^3/ul (0.0-0.1); BASOPHILS % 1.2 % (0.0-2.0); EOSINOPHILS # 0.2 10^3/ul (0.0-0.5); EOSINOPHILS % 2.5 % (0.0-7.0); HEMATOCRIT 30.2 % (37.0-47.0); HEMOGLOBIN 9.2 g/dl (12.0-16.0); LYMPHOCYTES # 1.7 10^3/ul (0.8-2.9); LYMPHOCYTES % 24.2 % (15.0-51.0); MEAN CORPUSCULAR HEMOGLOBIN 28.8 pg (29.0-33.0); MEAN CORPUSCULAR HGB CONC 30.5 g/dl (32.0-37.0); MEAN CORPUSCULAR VOLUME 94.4 fl (82.0-101.0); MONOCYTE # 0.5 10^3/ul (0.3-0.9); MONOCYTES % 7.1 % (0.0-11.0); NEUTROPHIL # 4.4 10^3/ul (1.6-7.5); PLATELET COUNT 206 10^3/UL (140-415); RED CELL DISTRIBUTION WIDTH 15.4 % (11.5-14.5)
[2018-06-09 08:36] LABS: INR 0.92; PROTIME 12.5 Sec (11.9-14.9)
[2018-06-09 08:37] LABS: ANION GAP 9 (5-13); BLOOD UREA NITROGEN 21 mg/dl (7-20); CARBON DIOXIDE 26 mmol/L (21-31); CHLORIDE 103 mmol/L (97-110); CREATININE 4.33 mg/dl (0.44-1.00); GLUCOSE 125 mg/dl (70-220); PARTIAL THROMBOPLASTIN TIME 30.4 Sec (23.0-35.0); POTASSIUM 3.5 mmol/L (3.5-5.1); SODIUM 138 mmol/L (135-144)
== END 2018-06-09 12:05 | disposition home or self-care (01) ==
LOC: E/R 07:25
DX: T82.49XA Other complication of vascular dialysis catheter, initial encounter (principal); I12.0 Hypertensive chronic kidney disease with stage 5 chronic kidney disease or end stage renal disease; N18.6 End stage renal disease; Y71.2 Prosthetic and other implants, materials and accessory cardiovascular devices associated with adverse incidents; Z86.73 Personal history of transient ischemic attack (TIA), and cerebral infarction without residual deficits; Z99.2 Dependence on renal dialysis
CPT/HCPCS: 36415; 71045; 80048; 85025; 85610; 85730; 93005; 99285-25

== ENCOUNTER → 2018-08-04 | Outpatient (CLI) | payer MEDICARE, OTHER | END | disposition home or self-care (01) | LOC: RAD 16:41 | DX: Z45.2 Encounter for adjustment and management of vascular access device (principal); I51.7 Cardiomegaly; I70.90 Unspecified atherosclerosis | CPT/HCPCS: 71046 ==